=== PATIENT | female | born 1995 | race Caucasian/White ===

== ENCOUNTER 2018-03-27 19:03 | Emergency (ER) | payer OTHER ==
[2018-03-27 19:36] VITALS: BP 105/64
--- NOTE | 2018-03-27 20:24 | UC ---
Elbow Pain - HPI Summary HPI Summary: small pustula left elbow with some tenderness and swelling no known injury - History of Current Complaint Chief Complaint: [employer] Stated Complaint: SKIN CONCERN, LEFT ELBOW Time Seen by Provider: 03/27/18 20:14 Hx Obtained From: Patient Hx Last Menstrual Period: mirena ?: No Mechanism of Injury: none Pain Intensity: 6 Pain Scale Used: 0-10 Numeric Location Of Pain: Is Discrete @ - left elbow (olecranon) Character: Aching Aggravating Factor(s): Movement Alleviating Factor(s): Nothing Associated Signs And Symptoms: Positive: Swelling, Redness - Allergies/Home Medications Allergies/Adverse Reactions: Allergies Allergy/AdvReac Type Severity Reaction Status Date / Time amoxicillin Allergy Hives Verified 03/27/18 19:28 Home Medications: Home Medications Levonorgestrel (Iud) [Mirena IUD] 20 mcg IU ONCE 03/27/18 [History Confirmed ] PMH/Surg Hx/FS Hx/Imm Hx Previously Healthy: Yes - Surgical History Surgical History: Yes Surgery Procedure, Year, and Place: tonsillectomy - Family History Known Family History: Positive: None - Social History Occupation: Employed Full-time Lives: With Family Alcohol Use: Rare Substance Use Type: None Smoking Status (MU): Current Every Day Smoker Type: Cigarettes Amount Used/How Often: 2 cigs every other day Length of Time of Smoking/Using Tobacco: 2 yrs. Have You Smoked in the Last Year: Yes Review of Systems Constitutional: Negative Skin: Negative Eyes: Negative ENT: Negative Respiratory: Negative Cardiovascular: Negative Gastrointestinal: Negative Genitourinary: Negative Motor: Negative Neurovascular: Negative Musculoskeletal: Arthralgia - tender left olecranon bursa Neurological: Negative Psychological: Negative Is Patient Immunocompromised?: No All Other Systems Reviewed And Are Negative: Yes Physical Exam Triage Information Reviewed: Yes Appearance: Well-Appearing, No Pain Distress, Well-Nourished Vital Signs: Initial Vital Signs Temp 99 F 03/27/18 19:29 Pulse 74 03/27/18 19:29 Resp 15 03/27/18 19:29 BP 105/64 03/27/18 19:29 Pulse Ox 98 03/27/18 19:29 Vital Signs Reviewed: Yes Eye Exam: Normal Eyes: Positive: Conjunctiva Clear ENT Exam: Normal ENT: Positive: Normal ENT inspection, Hearing grossly normal. Negative: Trismus , Muffled voice, Hoarse voice, Sinus tenderness Dental Exam: Normal Neck exam: Normal Neck: Positive: Supple, Nontender, No Lymphadenopathy Respiratory Exam: Normal Respiratory: Positive: Chest non-tender, No respiratory distress, No accessory muscle use Cardiovascular Exam: Normal Cardiovascular: Positive: RRR, Pulses Normal, Brisk Capillary Refill Musculoskeletal Exam: Normal Musculoskeletal: Positive: Strength Intact, ROM Intact, Edema @ - left olec. bura swollen and tender Neurological Exam: Normal Neurological: Positive: Alert, Muscle Tone Normal Psychological Exam: Normal Skin Exam: Other Skin: Positive: Other - erythema left elbow Elbow Pain Course/Dx - Course Course Of Treatment: warm compress, antibiodic follow with orthopedic MD should sx fail to resolve or worsen - Differential Dx/Diagnosis Provider Diagnoses: Left olecronon bursititis Discharge - Sign-Out/Discharge Documenting (check all that apply): Discharge/Admit/Transfer - Discharge Plan Condition: Stable Disposition: HOME Prescriptions: Sulfamethox/Trimethoprim DS* [Bactrim DS 800/160 TAB*] 1 tab PO BID #14 tab Patient Education Materials: Cellulitis (ED), Elbow Bursitis (ED), Warm Compress or Soak (ED) Referrals: Francisco Booth MD [Medical Doctor] - If Needed Td Mai MD [Medical Doctor] - If Needed - Billing Disposition and Condition Condition: STABLE Disposition: Home
[2018-03-27] MEDS ORDERED: Sulfamethox/Trimethoprim DS 800/160* TAB PO ONE (20:28)
== END 2018-03-27 20:31 | disposition home or self-care (01) ==
LOC: UCCORT 19:03
DX: M70.22 Olecranon bursitis, left elbow (principal); Z88.0 Allergy status to penicillin; F17.210 Nicotine dependence, cigarettes, uncomplicated
CPT/HCPCS: 99212; A9270-GY; G0463